=== PATIENT | female | born 1995 | race Caucasian/White ===

== ENCOUNTER 2017-12-10 03:44 | Emergency (ER) | payer SELFPAY ==
[2017-12-10] MEDS ORDERED: NACL 0.9% 1000 ML 1,000 ML IV ONE ×2 (04:00→09:16)
[2017-12-10] MEDS ORDERED: TYLENOL ONE (04:02)
[2017-12-10 04:28] LABS: Basophils # (Auto) 0.1 K/mm3 (0.0-0.1); Basophils % (Auto) 0.8 % (0.0-1.8); Eosinophils # (Auto) 0.4 K/mm3 (0.0-0.4); Eosinophils % (Auto) 5.5 % (0.0-4.3); Hematocrit 38.9 % (30.3-42.9); Hemoglobin 13.2 gm/dl (10.1-14.3); Lymphocytes # (Auto) 2.9 K/mm3 (1.2-5.4); Lymphocytes % (Auto) 38.1 % (13.4-35.0); Mean Corpuscular HGB Conc 34 % (30-34); Mean Corpuscular Hemoglobin 30 pg (28-32); Mean Corpuscular Volume 88 fl (79-97); Monocytes # (Auto) 0.6 K/mm3 (0.0-0.8); Monocytes % (Auto) 8.4 % (0.0-7.3); Platelet Count 321 K/mm3 (140-440); Red Blood Count 4.42 M/mm3 (3.65-5.03); Red Cell Distribution Width 14.7 % (13.2-15.2)
[2017-12-10 04:45] LABS: Alanine Aminotransferase 7 units/L (7-56); Albumin 4.6 g/dL (3.9-5); BUN/Creatinine Ratio 16; Blood Urea Nitrogen 8 mg/dL (7-17); Calcium 9.7 mg/dL (8.4-10.2); Hemolysis Index 7
--- NOTE | 2017-12-10 06:22 | Emergency Department Report ---
ED Abdominal Pain HPI - General Chief Complaint: Abdominal Pain Stated Complaint: ABD PAIN Time Seen by Provider: 12/10/17 06:21 Source: patient, family Mode of arrival: Ambulatory Limitations: No Limitations - History of Present Illness Initial Comments: Patient complains of left sided flank pain which started this morning. She also had nausea but denies vomiting. Patient just finished menstrual cycle last week. She denies any medical problem. She also denies fever or chills. MD Complaint: abdominal pain -: Sudden, Last night Location: LLQ, L flank Radiation: none Migration to: no migration Severity: moderate Severity scale (0 -10): 6 Quality: sharp Consistency: constant Improves With: nothing Worsens With: nothing Associated Symptoms: nausea, dysuria. denies: vomiting, diarrhea, fever, chills , constipation - Related Data LMP (females 10-50): last week Home Medications Medication Instructions Recorded Confirmed Last Taken Pnv #116/Iron Fumarate/FA/Dha 1 tab PO DAILY 03/04/16 03/04/16 2 Days Ago ~03/02/16 1 tab Previous Rx's Medication Instructions Recorded Last Taken Type Ibuprofen [Motrin] 400 mg PO Q8H PRN #30 tablet 12/10/17 Unknown Rx Ondansetron [Zofran Odt] 4 mg PO Q8HR PRN #15 tab.rapdis 12/10/17 Unknown Rx Sulfamethoxazole/Trimethoprim 1 each PO BID #28 tablet 12/10/17 Unknown Rx [Bactrim DS TAB] Allergies Allergy/AdvReac Type Severity Reaction Status Date / Time No Known Allergies Allergy Verified 08/30/15 02:47 ED Review of Systems ROS: Stated complaint: ABD PAIN Other details as noted in HPI Comment: All other systems reviewed and negative Constitutional: denies: chills, fever Eyes: denies: eye pain, eye discharge ENT: denies: ear pain, dental pain Respiratory: denies: cough, orthopnea, shortness of breath Cardiovascular: denies: chest pain, palpitations, dyspnea on exertion Endocrine: no symptoms reported Gastrointestinal: abdominal pain, nausea. denies: vomiting, diarrhea, constipation Genitourinary: dysuria, frequency. denies: urgency Musculoskeletal: denies: back pain, joint swelling Skin: denies: rash, lesions, change in color Neurological: denies: headache, weakness, numbness Psychiatric: denies: anxiety, depression Hematological/Lymphatic: denies: easy bleeding, easy bruising ED Past Medical Hx - Past Medical History Previous Medical History?: No Hx Hypertension: No Hx Diabetes: No Hx Deep Vein Thrombosis: No Hx Renal Disease: No Hx Sickle Cell Disease: No Hx Seizures: No Hx Asthma: No Hx HIV: No - Surgical History Past Surgical History?: No - Social History Smoking Status: Never Smoker Substance Use Type: None - Medications Home Medications: Home Medications Medication Instructions Recorded Confirmed Last Taken Type Pnv #116/Iron Fumarate/FA/Dha 1 tab PO DAILY 03/04/16 03/04/16 2 Days Ago History ~03/02/16 1 tab Ibuprofen [Motrin] 400 mg PO Q8H PRN #30 tablet 12/10/17 Unknown Rx Ondansetron [Zofran Odt] 4 mg PO Q8HR PRN #15 tab.rapdis 12/10/17 Unknown Rx Sulfamethoxazole/Trimethoprim 1 each PO BID #28 tablet 12/10/17 Unknown Rx [Bactrim DS TAB] ED Physical Exam - General Limitations: No Limitations General appearance: alert, in no apparent distress - Head Head exam: Present: atraumatic, normocephalic, normal inspection - Eye Eye exam: Present: normal appearance, PERRL, EOMI Pupils: Present: normal accommodation - ENT ENT exam: Present: normal exam, normal orophraynx, mucous membranes moist - Neck Neck exam: Present: normal inspection, full ROM. Absent: tenderness - Respiratory Respiratory exam: Present: normal lung sounds bilaterally. Absent: respiratory distress, wheezes, rales, rhonchi, stridor - Cardiovascular Cardiovascular Exam: Present: regular rate, normal rhythm, normal heart sounds - GI/Abdominal GI/Abdominal exam: Present: soft, tenderness (LLQ), normal bowel sounds. Absent : distended, guarding, rebound, rigid - Rectal Rectal exam: Present: deferred - External exam: Present: normal external exam. Absent: lacerations Speculum exam: Present: vaginal discharge, vaginal bleeding. Absent: tissue, laceration Bi-manual exam: Present: adnexal tenderness (Left), other ([place] was Ms. Priscilla RN.). Absent: cervical motion tendernes, adnexal mass, uterine enlargement, uterine tenderness - Extremities Exam Extremities exam: Present: normal inspection, full ROM, normal capillary refill. Absent: tenderness, pedal edema, joint swelling, calf tenderness - Back Exam Back exam: Present: normal inspection, full ROM, CVA tenderness (L). Absent: CVA tenderness (R), paraspinal tenderness, vertebral tenderness - Neurological Exam Neurological exam: Present: alert, oriented X3, CN II-XII intact - Psychiatric Psychiatric exam: Present: normal affect, normal mood - Skin Skin exam: Present: warm, dry, intact, normal color. Absent: rash ED Course Vital Signs 12/10/17 12/10/17 12/10/17 03:44 05:50 06:00 Temperature 97.5 F L 97.8 F Pulse Rate 91 H 76 Respiratory 20 16 Rate Blood Pressure 112/80 93/62 Blood Pressure 106/70 [Left] O2 Sat by Pulse 98 100 100 Oximetry 12/10/17 12/10/17 09:00 11:00 Temperature 98.1 F Pulse Rate 66 70 Respiratory 14 16 Rate Blood Pressure Blood Pressure 118/63 123/71 [Left] O2 Sat by Pulse 99 Oximetry - Reevaluation(s) Reevaluation #1: 12/10/17 10:24 On reevaluation patient says she is feeling much better after receiving treatment in the emergency room. She'll prefer to be discharged home. ED Medical Decision Making - Lab Data Result diagrams: 12/10/17 04:05 12/10/17 04:05 - Radiology Data Radiology results: report reviewed, image reviewed - Medical Decision Making Left Flank Pain. Left Pyelonephritis. PID. Critical care attestation.: If time is entered above; I have spent that time in minutes in the direct care of this critically ill patient, excluding procedure time. ED Disposition Clinical Impression: UTI (urinary tract infection) Qualifiers: Urinary tract infection type: acute cystitis Hematuria presence: without hematuria Qualified Code(s): N30.00 - Acute cystitis without hematuria Ovarian cyst Qualifiers: Laterality: left Qualified Code(s): N83.202 - Unspecified ovarian cyst, left side Abdominal pain Qualifiers: Abdominal location: lower abdomen, unspecified Qualified Code(s): R10.30 - Lower abdominal pain, unspecified Disposition: TO HOME OR SELFCARE Is pt being admited?: No Does the pt Need Aspirin: No Condition: Stable Instructions: Ovarian Cyst (ED), Urinary Tract Infection in Women (ED), Abdominal Pain (ED) Additional Instructions: Please follow up with Dr Sanchez on Wednesday morning. Return to the ED if your condition worsens. Prescriptions: Ibuprofen [Motrin] 400 mg PO Q8H PRN #30 tablet PRN Reason: Pain , Severe (7-10) Ondansetron [Zofran Odt] 4 mg PO Q8HR PRN #15 tab.rapdis PRN Reason: Nausea And Vomiting Sulfamethoxazole/Trimethoprim [Bactrim DS TAB] 1 each PO BID #28 tablet Referrals: PRIMARY CARE, [Primary Care Provider] - 3-5 Days SOUMYA SANCHEZ MD [Staff Physician] - 3-5 Days Time of Disposition: 10:34
[2017-12-10] MEDS ORDERED: MORPHINE IV ONE (06:50)
[2017-12-10] MEDS ORDERED: ZOFRAN IV ONE (06:51)
[2017-12-10 07:17] LABS: Bilirubin,Urine NEG (Negative); Blood,Urine SM (Negative); Color,Urine Yellow (Yellow); Mucus,Urine 3+ /HPF
[2017-12-10 07:34] LABS: WBC,Urine > 182.0 /HPF (0.0-6.0)
[2017-12-10] MEDS ORDERED: ROCEPHIN/NS 1 GM/50 ML 1 GM/50 ML BAG IV NR (09:15)
--- NOTE | 2017-12-10 09:50 | Cat Scan Report ---
CT scan of abdomen and pelvis with IV contrast: History: Abdominal pain. Findings: Normal lung bases. No pleural or pericardial effusion. Normal liver spleen pancreas and gallbladder. Normal adrenals kidneys and bladder. No free intraperitoneal fluid or air. No evidence of adenopathy. Normal aorta. No evidence of appendicitis or diverticulitis. Suspicion of a small left ovarian cyst. No bowel distention or evidence of obstruction. Impression: Suspicion of a small left ovarian cyst.
[2017-12-10 11:16] VITALS: BP 123/71
== END 2017-12-10 11:16 | disposition home or self-care (01) ==
LOC: ED 03:44
DX: N30.00 Acute cystitis without hematuria (principal); N83.202 Unspecified ovarian cyst, left side
CPT/HCPCS: 36415; 74177; 80053; 81001; 83690; 84703; 85025; 87076; 87086; 87186; 87210; 87591; 96365; 96375; 99285; J0696; J2270; J2405; J7030; Q9967

== ENCOUNTER 2021-08-09 22:23 | Emergency (ER) | payer SELFPAY ==
[2021-08-09 22:52] VITALS: BP 109/72
[2021-08-09 23:31] LABS: Bilirubin,Urine NEG (Negative); Blood,Urine NEG (Negative); Color,Urine Straw (Yellow); Mucus,Urine FEW /HPF; Protein,Urine <15 mg/dL mg/dL (Negative); Urobilinogen,Urine < 2.0 mg/dL (<2.0)
[2021-08-09 23:51] LABS: Basophils # (Auto) 0.1 K/mm3 (0.0-0.1); Basophils % (Auto) 0.9 % (0.0-1.8); Eosinophils # (Auto) 0.2 K/mm3 (0.0-0.4); Eosinophils % (Auto) 2.5 % (0.0-4.3); Hematocrit 32.9 % (30.3-42.9); Hemoglobin 10.9 gm/dl (10.1-14.3); Lymphocytes # (Auto) 2.8 K/mm3 (1.2-5.4); Lymphocytes % (Auto) 42.9 % (13.4-35.0); Mean Corpuscular HGB Conc 33 % (30-34); Mean Corpuscular Volume 84 fl (79-97); Monocytes # (Auto) 0.6 K/mm3 (0.0-0.8); Monocytes % (Auto) 8.9 % (0.0-7.3); Platelet Count 261 K/mm3 (140-440); Red Blood Count 3.92 M/mm3 (3.65-5.03); Red Cell Distribution Width 15.6 % (13.2-15.2)
[2021-08-09] MEDS ORDERED: ACETAMINOPHEN 325 MG TAB PO ONE (23:57)
[2021-08-10 00:01] LABS: HCG Qualitative,Urine Positive (Negative)
[2021-08-10 00:15] LABS: Alanine Aminotransferase 6 units/L (7-56); Albumin 4.3 g/dL (3.9-5); Blood Urea Nitrogen 8 mg/dL (7-17); Calcium 9.4 mg/dL (8.4-10.2); Hemolysis Index 2
[2021-08-10 00:21] LABS: BUN/Creatinine Ratio 16
--- NOTE | 2021-08-10 02:39 | Ultrasound Report ---
ULTRASOUND OBSTETRIC INDICATION / CLINICAL INFORMATION: Left lower abdo pain- , 8 weeks gestation. Clinical Gestational Age (GA) in weeks, days: 10 weeks 1 day TECHNIQUE: Transabdominal and Transvaginal. COMPARISON: None available. FINDINGS: The uterus measures 10.7 x 8.0 x 10.2 cm. A single intrauterine gestational sac is demonstrated with mean gestational sac size of 5.01 mm, ashley elating with 10 week 5 day estimated gestational age and mean crown-rump length of 2.98 mm, correlati ng with a 9 week 6 day estimated gestational age. Estimated composite gestational age is 10 weeks 2 days with EDC of 03/06/2022. Yolk sac and pole demonstrate no significant abnormalities. Sac margins appear intact. No free fluid noted within the pelvis. heart rate of 151 bpm is demonstrated. Ovaries are not identified. IMPRESSION: 1. Single intrauterine gestation with estimated composite gestational age of 10 weeks 2 days, EDC of 03/06/2022. heart activity is present. Signer Name: Corey Melo II, MD Signed: 08/10/2021 2:35 AM Workstation Name: [id number]
--- NOTE | 2021-08-10 02:56 | Emergency Department Report ---
ED Abdominal Pain HPI - General Chief Complaint: Abdominal Pain Stated Complaint: 2 MONTHS /SEVERE SHARP ABD PAIN Source: patient Mode of arrival: Ambulatory Limitations: No Limitations - History of Present Illness Initial Comments: Patient is a A0 25-year-old female who is approximately 8 weeks gestation presents to the ED with complaint of acute onset persistent left flank pain that radiates to the left lower quadrant and suprapubic pain for the last 1-1/2 weeks, worse in the last 3 days. Patient states that the pain was initially mild and intermittent but in the last 3 days the pain has become constant and worse with movement. Patient denies vaginal bleeding, vaginal discharge, dysuria, urinary frequency and urgency, chest pain or shortness of breath, sore throat, diarrhea, vomiting, traumatic injury or heavy lifting or cough, fever and chills. MD Complaint: abdominal pain (Left flank and left lower abdominal pain) -: Sudden, week(s) (1.5 ) Location: LLQ, L flank Radiation: LLQ, suprapubic, L flank Migration to: no migration Severity scale (0 -10): 6 Quality: cramping, sharp Consistency: constant Improves With: nothing Worsens With: movement Associated Symptoms: denies other symptoms, nausea. denies: vomiting, diarrhea, fever, chills, constipation, dysuria, hematemesis, melena, hematuria, anorexia, syncope, other - Related Data Home Medications Medication Instructions Recorded Confirmed Last Taken Pnv #116/Iron Fumarate/FA/Dha 1 tab PO DAILY 03/04/16 03/04/16 2 Days Ago ~03/02/16 1 tab Previous Rx's Medication Instructions Recorded Last Taken Type Ibuprofen [Motrin] 400 mg PO Q8H PRN #30 tablet 12/10/17 Unknown Rx Ondansetron [Zofran Odt] 4 mg PO Q8HR PRN #15 tab.rapdis 12/10/17 Unknown Rx Sulfamethoxazole/Trimethoprim 1 each PO BID #28 tablet 12/10/17 Unknown Rx [Bactrim DS TAB] Acetaminophen [Tylenol] 500 mg PO Q6HR PRN #30 tablet 08/10/21 Unknown Rx Metoclopramide [Reglan] 10 mg PO Q8H PRN #30 tab 08/10/21 Unknown Rx Allergies Allergy/AdvReac Type Severity Reaction Status Date / Time No Known Allergies Allergy Verified 08/30/15 02:47 ED Review of Systems ROS: Stated complaint: 2 MONTHS /SEVERE SHARP ABD PAIN Other details as noted in HPI Constitutional: denies: chills, fever Eyes: denies: eye pain, eye discharge, vision change ENT: denies: ear pain, throat pain Respiratory: denies: cough, shortness of breath, wheezing Cardiovascular: denies: chest pain, palpitations Endocrine: no symptoms reported Gastrointestinal: abdominal pain (Left lower quadrant and left flank pain), nausea. denies: vomiting, diarrhea Genitourinary: denies: urgency, dysuria, discharge Musculoskeletal: denies: back pain, joint swelling, arthralgia Skin: denies: rash, lesions Neurological: denies: headache, weakness, paresthesias Psychiatric: denies: anxiety, depression Hematological/Lymphatic: denies: easy bleeding, easy bruising ED Past Medical Hx - Past Medical History Previous Medical History?: No Hx Hypertension: No Hx Diabetes: No Hx Deep Vein Thrombosis: No Hx Renal Disease: No Hx Sickle Cell Disease: No Hx Seizures: No Hx Asthma: No Hx HIV: No - Surgical History Past Surgical History?: No - Social History Smoking Status: Never Smoker Substance Use Type: None - Medications Home Medications: Home Medications Medication Instructions Recorded Confirmed Last Taken Type Pnv #116/Iron Fumarate/FA/Dha 1 tab PO DAILY 03/04/16 03/04/16 2 Days Ago History ~03/02/16 1 tab Ibuprofen [Motrin] 400 mg PO Q8H PRN #30 tablet 12/10/17 Unknown Rx Ondansetron [Zofran Odt] 4 mg PO Q8HR PRN #15 tab.rapdis 12/10/17 Unknown Rx Sulfamethoxazole/Trimethoprim 1 each PO BID #28 tablet 12/10/17 Unknown Rx [Bactrim DS TAB] Acetaminophen [Tylenol] 500 mg PO Q6HR PRN #30 tablet 08/10/21 Unknown Rx Metoclopramide [Reglan] 10 mg PO Q8H PRN #30 tab 08/10/21 Unknown Rx ED Physical Exam - General Limitations: No Limitations General appearance: alert, in no apparent distress - Head Head exam: Present: atraumatic, normocephalic, normal inspection - Eye Eye exam: Present: normal appearance, PERRL, EOMI Pupils: Present: normal accommodation - ENT ENT exam: Present: normal exam, normal orophraynx, mucous membranes moist, TM's normal bilaterally, normal external ear exam - Neck Neck exam: Present: normal inspection, full ROM - Respiratory Respiratory exam: Present: normal lung sounds bilaterally. Absent: respiratory distress, wheezes, rales, rhonchi, stridor, chest wall tenderness, accessory muscle use, decreased breath sounds, prolonged expiratory - Cardiovascular Cardiovascular Exam: Present: regular rate, normal rhythm, normal heart sounds. Absent: systolic murmur, diastolic murmur, rubs, gallop - GI/Abdominal GI/Abdominal exam: Present: soft, tenderness (Palpable left flank and left lower quadrant tenderness), normal bowel sounds. Absent: guarding, rebound, hyperactive bowel sounds, hypoactive bowel sounds, organomegaly, mass - Bi-manual exam: Present: other (Pelvic exam deferred) - Extremities Exam Extremities exam: Present: normal inspection, full ROM, normal capillary refill - Back Exam Back exam: Present: normal inspection, full ROM. Absent: tenderness, CVA tenderness (R), CVA tenderness (L), muscle spasm, paraspinal tenderness, vertebral tenderness - Neurological Exam Neurological exam: Present: alert, oriented X3, CN II-XII intact, normal gait, reflexes normal - Psychiatric Psychiatric exam: Present: normal affect, normal mood - Skin Skin exam: Present: warm, dry, intact, normal color. Absent: rash ED Course Vital Signs 08/09/21 22:50 Temperature 97.9 F Pulse Rate 89 Respiratory 20 Rate Blood Pressure 109/72 O2 Sat by Pulse 100 Oximetry ED Medical Decision Making - Lab Data Result diagrams: 08/09/21 23:37 08/09/21 23:37 - Radiology Data Radiology results: report reviewed, image reviewed [facility] [address] [place] [address] Ultrasound Report Signed Patient: LETY MANZO MR# : [id number] : 1995 Acct:[id number] Age/Sex: 25 / F ADM Date: 08/09/21 Loc: ED Attending Dr: Ordering Physician: DIAMOND CALDERON Date of Service: 08/09/21 Procedure(s): US OB transvaginal Accession Number(s): [id number] cc: DEJA OSEDO, PA ULTRASOUND OBSTETRIC INDICATION / CLINICAL INFORMATION: Left lower abdo pain- , 8 weeks gestation. Clinical Gestational Age (GA) in weeks, days: 10 weeks 1 day TECHNIQUE: Transabdominal and Transvaginal. COMPARISON: None available. FINDINGS: The uterus measures 10.7 x 8.0 x 10.2 cm. A single intrauterine gestational sac is demonstrated with mean gestational sac size of 5.01 mm, correlating with 10 week 5 day estimated gestational age and mean crown-rump length of 2.98 mm, correlating with a 9 week 6 day estimated gestational age. Estimated composite gestational age is 10 weeks 2 days with EDC of 03/06/2022. Yolk sac and pole demonstrate no significant abnormalities. Sac margins appear intact. No free fluid noted within the pelvis. heart rate of 151 bpm is demonstrated. Ovaries are not identified. IMPRESSION: 1. Single intrauterine gestation with estimated composite gestational age of 10 weeks 2 days, EDC of 03/06/2022. heart activity is present. Signer Name: Amalia Westbrook II, MD Signed: 08/10/2021 2:35 AM Workstation Name: [id number] Transcribed By: JAMES Dictated By: AMALIA WESTBROOK II, MD Electronically Authenticated By: AMALIA WESTBROOK II, MD Signed Date/Time: 08/10/21234 DD/ 0 TD/TT: - Medical Decision Making This is a A0 25-year-old female who is approximately 8 weeks gestation presents to the ED with complaint of acute onset persistent left flank pain that radiates to the left lower quadrant and suprapubic pain for the last 1-1/2 weeks, worse in the last 3 days. Patient states that the pain was initially mild and intermittent but in the last 3 days the pain has become constant and worse with movement. In the ED, patient is alert and oriented x3 and is not in any distress. Patient was treated for pain in the ED. Lab test results were reviewed and are all nonactionable. Transvaginal ultrasound showed a single intrauterine gestation with estimated composite gestational age of 10 weeks 2 days, EDC of 03/06/2022 with the heart rate of 151 bpm. Patient was therefore discharged home and advised to take Tylenol as needed for pain, and observe complete pelvic rest with no strenuous physical activities or sexual activities or heavy lifting and to follow-up with [facility] [facility] physician in 5 to 7 days for reevaluation. Patient is advised return to the ED immediately if symptoms get worse. - Differential Diagnosis Ovarian cyst; ectopic ; UTI; kidney stone; Critical care attestation.: If time is entered above; I have spent that time in minutes in the direct care of this critically ill patient, excluding procedure time. ED Disposition Clinical Impression: Abdominal pain during in first trimester Disposition: HOME / SELF CARE / HOMELESS Is pt being admited?: No Does the pt Need Aspirin: No Condition: Stable Instructions: Abdominal Pain (ED), Abdominal Pain During , [id number] Additional Instructions: All lab test results were reviewed and are all nonactionable. Transvaginal ultrasound showed a single intrauterine gestation with estimated composite gestational age of 10 weeks 2 days, EDC of 03/06/2022 with a heart rate of 151 bpm. Therefore take Tylenol as needed for pain, drink plenty of fluids, observe complete pelvic rest with no straining, sexual activity, heavy lifting and follow-up with your [employer] [employer] [facility] physician in 5 to 7 days for reevaluation. Return to the ED immediately if symptoms get worse. Prescriptions: Acetaminophen [Tylenol] 500 mg PO Q6HR PRN #30 tablet PRN Reason: Pain , Severe (7-10) Metoclopramide [Reglan] 10 mg PO Q8H PRN #30 tab PRN Reason: Nausea And Vomiting Referrals: AVILA PERALES MD [Staff Physician] - 3-5 Days Time of Disposition: 03:00 Print Language: ROMANIAN
== END 2021-08-10 03:09 | disposition home or self-care (01) ==
LOC: ED 22:23
DX: O26.891 Other specified pregnancy related conditions, first trimester (principal); R10.32 Left lower quadrant pain; Z3A.08 8 weeks gestation of pregnancy; Z79.899 Other long term (current) drug therapy
CPT/HCPCS: 36415; 76801; 76817; 80053; 81001; 81025; 83690; 84702; 85025; 99284

== ENCOUNTER 2022-02-12 20:49 | Inpatient (IN) | payer SELFPAY ==
[2022-02-12] MEDS ORDERED: LACTATED RINGERS 500 ML IV ONE (21:19)
[2022-02-12] MEDS ORDERED: LOPERAMIDE 2 MG CAP PO PRN (21:45)
[2022-02-12] MEDS ORDERED: MINERAL OIL 30 ML ORAL LIQD PO PRN (21:45)
[2022-02-12] MEDS ORDERED: fentaNYL 100 MCG/2 ML INJ IV PRN (21:45)
[2022-02-12] MEDS ORDERED: LIDOCAINE (2%) 20 MG/1 ML VIAL 20 ML MDV INFILTRATI ONE (21:45)
[2022-02-12] MEDS ORDERED: miSOPROStol 200 MCG TAB PR PRN (21:45)
[2022-02-12] MEDS ORDERED: LACTATED RINGERS 1,000 ML IV SCH (21:45)
[2022-02-12] MEDS ORDERED: BUTORPHANOL 2 MG/1 ML INJ IV PRN ×2 (21:45)
[2022-02-12] MEDS ORDERED: OXYTOCIN 10 UNIT/1 ML INJ IM PRN (21:45)
[2022-02-12] MEDS ORDERED: METHYLERGONOVINE MALEATE 0.2 MG/ML VIAL IM PRN (21:45)
[2022-02-12] MEDS ORDERED: ePHEDrine SULFATE 50 MG/1 ML INJ IV PRN (21:45)
[2022-02-12] MEDS ORDERED: ACETAMINOPHEN 325 MG TAB PO PRN ×2 (21:45→23:35)
[2022-02-12] MEDS ORDERED: CARBOPROST TROMETHAMINE 250 MCG/1 ML INJ IM PRN (21:45)
[2022-02-12] MEDS ORDERED: TERBUTALINE 1 MG/1 ML INJ SUB-Q PRN (21:45)
[2022-02-12] MEDS ORDERED: OXYTOCIN DRIP 30 UNITS/500 ML BAG IV SCH ×2 (22:00)
--- NOTE | 2022-02-12 22:43 | Ultrasound Report ---
ULTRASOUND OBSTETRIC INDICATION / CLINICAL INFORMATION: Contractions. Clinical Gestational Age (GA) in weeks, days: 36, 5 TECHNIQUE: Transabdominal and Transvaginal. COMPARISON: None available. FINDINGS: Single intrauterine . Biparietal Diameter = 8.37 cm = 33, 5 weeks, days Head Circumference = 31.01 cm = 34, 5 weeks, days Abdominal Circumference = 29.53 cm = 33, 4 weeks, days Femur Length = 6.73 cm = 34, 4 weeks, days Average Ultrasound Age (AUA) = 34, 1 weeks, days Heart Rate: 134 beats per minute. Estimated Weight in grams (if calculated): 2316 Estimated Weight Growth Percentile (if calculated): 4 Position: cephalic. Cervix: Cervix could not be visualized Placenta: anterior and grade 2 Amniotic Fluid Volume: normal Amniotic Fluid Index (GILDA) in cm (if calculated): 8.2. IMPRESSION: 1. Single, living intrauterine with estimated sonographic age of 34, 1 weeks, days. 2. The cervix could not be visualized. Signer Name: Taye Pérez MD Signed: 02/12/2022 10:39 PM Workstation Name: [id number]
[2022-02-12 22:51] LABS: Hematocrit 30.9 % (30.3-42.9); Hemoglobin 10.1 gm/dl (10.1-14.3); Mean Corpuscular HGB Conc 33 % (30-34); Mean Corpuscular Volume 87 fl (79-97); Platelet Count 239 K/mm3 (140-440); Red Blood Count 3.56 M/mm3 (3.65-5.03); Red Cell Distribution Width 15.7 % (13.2-15.2)
[2022-02-12] MEDS ORDERED: LIDOCAINE-MPF (1%) 10 MG/1 ML VIAL 5 ML INFILTRATI ONE (23:10)
[2022-02-12] MEDS ORDERED: WITCH HAZEL/ GLYCERIN PAD TP PRN (23:35)
[2022-02-12] MEDS ORDERED: LANOLIN/ZINC/DIMETHICONE (LANSINOH) 7 GM TP PRN (23:35)
[2022-02-12] MEDS ORDERED: HYDROcodone/ACETAMINOPHEN 5-325 MG TAB PO PRN (23:35)
[2022-02-12] MEDS ORDERED: BENZOCAINE/MENTHOL 20/0.5% TOP SPRAY 56 GM TP PRN (23:35)
[2022-02-12] MEDS ORDERED: MAGNESIUM HYDROXIDE (MOM) ORAL LIQD UDC PO PRN (23:35)
--- NOTE | 2022-02-12 23:46 | History and Physical Report ---
History of Present Illness Date of examination: 02/12/22 Date of admission: 02/12/22 21:45 Chief complaint: Contractions History of present illness: 26-year-old at 36-5/7 weeks gestation presents to OB triage reporting regular and painful uterine contractions every 3 to 5 minutes. There is no vaginal bleeding. There is no leaking of fluid. There is good movement. In OB triage, cervix was noted to be 10/100%/+2 with bulging bag of water. The patient is admitted to labor and delivery for management of active labor. Past History Past Medical History: no pertinent history Past Surgical History: no surgical history Family/Genetic History: none Social history: no significant social history - Obstetrical History Expected Date of Delivery: 03/07/22 Actual Gestation: 36 Week(s) 5 Day(s) : 3 Para: 2 Hx # Term Pregnancies: 1 Number of Pregnancies: 1 Spontaneous Abortions: 0 Induced : 0 Number of Living Children: 2 Medications and Allergies Allergies Allergy/AdvReac Type Severity Reaction Status Date / Time No Known Allergies Allergy Verified 08/30/15 02:47 Home Medications Medication Instructions Recorded Confirmed Last Taken Type Pnv #116/Iron Fumarate/FA/Dha 1 tab PO DAILY 03/04/16 03/04/16 2 Days Ago History ~03/02/16 1 tab Ibuprofen [Motrin] 400 mg PO Q8H PRN #30 tablet 12/10/17 Unknown Rx Ondansetron [Zofran Odt] 4 mg PO Q8HR PRN #15 tab.rapdis 12/10/17 Unknown Rx Sulfamethoxazole/Trimethoprim 1 each PO BID #28 tablet 12/10/17 Unknown Rx [Bactrim DS TAB] Acetaminophen [Tylenol] 500 mg PO Q6HR PRN #30 tablet 08/10/21 Unknown Rx Metoclopramide [Reglan] 10 mg PO Q8H PRN #30 tab 08/10/21 Unknown Rx Active Meds: Active Medications Acetaminophen (Acetaminophen 325 Mg Tab) 650 mg PO Q4H PRN PRN Reason: Pain MILD(1-3)/Fever >100.5/CHIU Hydrocodone Bitart/Acetaminophen (Hydrocodone/Acetaminophen 5-325 Mg Tab) 2 each PO Q6H PRN PRN Reason: Pain, Moderate (4-6) Benzocaine/Menthol (Benzocaine/Menthol 20/0.5% [place] 56 Gm) 1 spray TP PRN PRN PRN Reason: Episiotomy Pain Docusate Sodium (Docusate Sodium 100 Mg Cap) 100 mg PO BID CINDY Ibuprofen (Ibuprofen 800 Mg Tab) 800 mg PO Q8H CINDY Magnesium Hydroxide (Magnesium Hydroxide (Mom) Oral Liqd Udc) 30 ml PO HS PRN PRN Reason: Constipation Multi-Ingredient Ointment (Lanolin/Zinc/Dimethicone (Lansinoh) 7 Gm) 1 applic TP PRN PRN PRN Reason: Sore Nipples Multivitamins/Iron/Calcium ( Qpy39-Kv Fumarate-Folic Acid Vit Tab) 1 ea ch PO QDAY CINDY Sodium Chloride (Sodium Chloride 0.9% 10 Ml Flush Syringe) 10 ml IV PRN NR Witch Radhika/Glycerin (Witch Radhika/ Glycerin Pad) 1 each TP PRN PRN PRN Reason: Hemorrhoid/cleansing/soothing Review of Systems All systems: negative - Vital Signs Vital signs: Vital Signs Resp Pulse Ox 14 100 02/12/22 21:02 02/12/22 21:02 Temp Pulse Resp BP Pulse Ox 83 14 102/59 97 02/12/22 23:38 02/12/22 21:02 02/12/22 23:34 02/12/22 23:38 - Physical Exam Breasts: Positive: normal Cardiovascular: Regular rate Lungs: Positive: Normal air movement Abdomen: Positive: normal appearance Genitourinary (Female): Positive: normal external genitalia, normal perenium Vulva: both: normal Vagina: Positive: normal moisture Uterus: Positive: enlarged Adnexa: both: normal Anus/Rectum: Positive: normal perianal skin Extremities: Positive: normal Deep Tendon Reflex Grade: Normal +2 - Obstetrical FHR: category 1 Uterine Contraction Monitor Mode: External Cervical Dilatation: 10 Cervical Effacement Percentage: 100 station: +2 Uterine Contraction Frequency (min): 3 Uterine Contraction Pattern: Regular Results Result Diagrams: 02/12/22 21:45 Abnormal lab results 02/12/22 Range/Units 21:45 RBC 3.56 L (3.65-5.03) M/mm3 RDW 15.7 H (13.2-15.2) % All other labs normal. Ultrasound: report reviewed, image reviewed, other (OB Ultrasound Limited= SLIUP. Vertex. Anerior placenta. EFW= 2316 g (4th %-ile). GILDA= 8.2 cm.) Assessment and Plan - Patient Problems (1) 36 weeks gestation of Current Visit: Yes Status: Acute Plan to address problem: care is up-to-date. As this patient is below 37 weeks, prescribed penicillin for intrapartum GBS prophylaxis per 2010 CDC MMWR guidelines. (2) labor in third trimester Current Visit: Yes Status: Acute Plan to address problem: As this patient is 10 cm dilated at this gestational age, she fulfills the contemporary criteria for labor. As this patient is below 37 weeks, prescribed penicillin for intrapartum GBS prophylaxis per 2010 CDC MMWR guidelines. No glucocorticoids at this gestational age as delivery is imminent. There is no role for tocolysis at this gestational age. There is no role for magnesium for neuro prophylaxis at this gestational age. NICU was consulted. Expectant management for now. I anticipate a precipitous vaginal delivery imminently. (3) growth restriction Current Visit: Yes Status: Acute Plan to address problem: The estimated weight is in the 4th percentile. As such this fulfills the contemporary criteria for growth restriction. NICU was consulted. I expect a precipitous vaginal delivery imminently.
--- NOTE | 2022-02-12 23:52 | Procedure Note ---
OB Delivery Note - Delivery Date of Delivery: 02/12/22 Surgeon: ARIADNE JORDAN Estimated blood loss: 300cc - Vaginal Delivery presentation: vertex Delivery position: OA Intrapartum events: labor-<37 weeks, precipitous labor- <3hr Delivery induction: none Delivery augmentation: rupture of membranes Delivery monitor: external FHT, external uterine Route of delivery: Delivery placenta: spontaneous Delivery cord: 3 umbilical vessels Episiotomy: none Delivery laceration: 1st degree, other (Bilateral periurethral lacerations) Delivery repair: vicryl Anesthesia: local Delivery comments: The patient is a 26-year-old at 36-5/7 weeks gestation who presented to OB triage with regular and painful uterine contractions. Cervix was noted to be 10 cm dilated. As such this patient was then labor. She was brought to labor and delivery. Membranes were artificially ruptured. The patient produced a liveborn female infant. Mouth and nose were bulb suction in the field. The remainder of the infant was delivered atraumatically. Cord was clamped and cut after 60 seconds of delayed cord clamping. The was handed off to the waiting nursery team. Bilateral periurethral lacerations and a first- degree perineal laceration were infiltrated with lidocaine with 1%. Thereafter, those lacerations were repaired with 3-0 Vicryl in a running fashion with excellent hemostasis and excellent cosmesis. All instruments were removed from the patient's vagina. Sponge, lap, needle counts were correct x2. - Infant A at 1 minute: 8 at 5 minutes: 9 Infant Gender: Female (2560 g)
[2022-02-13 06:27] LABS: Hematocrit 28.9 % (30.3-42.9); Hemoglobin 9.7 gm/dl (10.1-14.3); Mean Corpuscular HGB Conc 33 % (30-34); Mean Corpuscular Volume 87 fl (79-97); Platelet Count 242 K/mm3 (140-440); Red Blood Count 3.35 M/mm3 (3.65-5.03); Red Cell Distribution Width 16.3 % (13.2-15.2)
[2022-02-13] MEDS: IBUPROFEN 800 MG TAB PO SCH ×2 (08:19→16:41)
[2022-02-13] MEDS ORDERED: DOCUSATE SODIUM 100 MG CAP PO SCH (10:00)
[2022-02-13] MEDS ORDERED: PRENATAL VIT27-FE FUMARATE-FOLIC ACID VIT TAB PO SCH (10:00)
--- NOTE | 2022-02-13 14:55 | Progress Note ---
Assessment and Plan A: S/P Asymptomatic anemia P: Continue routine pp orders Fe rx'd D/C home tomm if stable Subjective - Subjective Date of service: 02/13/22 Principal diagnosis: s/p Patient reports: appetite normal, voiding normally, pain well controlled, ambulating normally : doing well, in NICU Objective - Vital Signs Latest vital signs: Vital Signs Temp Pulse Resp BP BP Pulse Ox 02/13/22 08:51 97.9 F 80 16 103/69 97 02/13/22 08:30 80 98 02/13/22 08:25 72 99 02/13/22 08:20 104 H 97 02/13/22 08:19 20 02/13/22 08:15 88 97 02/13/22 08:10 100 H 96 02/13/22 08:05 91 H 96 02/13/22 08:00 70 96 02/13/22 07:55 73 97 02/13/22 07:50 87 96 02/13/22 07:45 76 95 02/13/22 07:40 91 H 97 02/13/22 07:38 84 94 02/13/22 07:37 85 96/59 02/13/22 07:35 97.9 F 82 20 96/59 95 02/13/22 07:34 71 94/55 02/13/22 01:23 87 96 02/13/22 01:18 82 98 02/13/22 01:13 79 97 02/13/22 01:08 74 96 02/13/22 01:04 77 100/60 02/13/22 01:03 91 H 98 02/13/22 00:58 82 97 02/13/22 00:57 85 94 02/13/22 00:53 75 96 02/13/22 00:48 84 96 02/13/22 00:43 82 96 02/13/22 00:39 98.2 F 02/13/22 00:38 84 96 02/13/22 00:34 85 108/66 02/13/22 00:33 83 99 02/13/22 00:28 72 99 02/13/22 00:23 80 99 02/13/22 00:18 74 99 02/13/22 00:13 76 98 02/13/22 00:09 99.0 F 02/13/22 00:08 71 99 02/13/22 00:03 67 105/64 99 02/12/22 23:58 75 99 02/12/22 23:53 73 99 02/12/22 23:48 75 101/59 98 02/12/22 23:43 82 97 02/12/22 23:38 83 97 02/12/22 23:34 83 102/59 02/12/22 23:33 90 98 02/12/22 23:28 87 97 02/12/22 23:23 83 98 02/12/22 23:18 89 97 02/12/22 23:13 89 98 02/12/22 23:08 84 99 02/12/22 23:03 88 99 02/12/22 22:58 83 96 02/12/22 22:53 85 98 02/12/22 22:48 96 H 99 02/12/22 22:43 97 H 99 02/12/22 22:38 98 H 97 02/12/22 22:33 92 H 97 02/12/22 22:28 89 97 02/12/22 22:23 89 98 02/12/22 22:18 91 H 97 02/12/22 22:13 84 98 02/12/22 22:11 92 H 94 02/12/22 22:08 92 H 96 02/12/22 22:03 88 97 02/12/22 21:58 79 98 02/12/22 21:53 80 98 02/12/22 21:48 102 H 98 02/12/22 21:43 90 97 02/12/22 21:38 87 97 02/12/22 21:33 102 H 96 02/12/22 21:28 95 H 98 02/12/22 21:23 93 H 99 02/12/22 21:18 92 H 98 02/12/22 21:17 93 H 124/64 02/12/22 21:02 14 100 Intake and Output 02/12/22 02/13/22 02/13/22 22:59 06:59 14:59 Output Total 300 Balance -300 Output: Urine 300 Void 300 Other: Total, Output Amount 300 Weight 106 lb Estimated Blood Loss 300 - Exam Breasts: Present: normal Abdomen: Present: normal appearance, soft, normal bowel sounds Vulva: both: normal Uterus: Present: normal, firm, fundal height below umbilicus Extremities: Present: normal Incision: Present: normal, intact - Labs Labs: Abnormal lab results 02/12/22 02/13/22 Range/Units 21:45 05:38 WBC 11.6 H (4.5-11.0) K/mm3 RBC 3.56 L 3.35 L (3.65-5.03) M/mm3 Hgb 9.7 L (10.1-14.3) gm/dl Hct 28.9 L (30.3-42.9) % RDW 15.7 H 16.3 H (13.2-15.2) %
[2022-02-13] MEDS ORDERED: FERROUS SULFATE 325 MG TAB PO ONE (16:00)
[2022-02-13 17:20] VITALS: BP 107/59
--- NOTE | 2022-02-13 19:11 | Discharge Summary ---
Providers - Providers Date of Admission: 02/12/22 21:45 Date of discharge: 02/14/22 Attending physician: ARIADNE JORDAN MD Primary care physician: ARIADNE JORDAN MD Hospitalization Reason for admission: active labor, labor Delivery: Episiotomy: none Laceration: 1st degree Incision: normal, intact Other procedures: none complications: other (asymptomatic anemia-received Fe) Discharge diagnosis: delivery [place] baby: female Hospital course: Pt was admitted to [facility] in [place]. She had a and developed asymptomatic anemia pp. Pt received Fe pp and was d/c'd home in stable condition. See H&P,delivery summary, and pp notes. Condition at discharge: Stable Disposition: HOME / SELF CARE / HOMELESS Plan - Discharge Medications Prescriptions: Ibuprofen [Motrin 800 MG tab] 800 mg PO Q8HR PRN #20 tablet PRN Reason: Pain, Mild (1-3) - Provider Discharge Summary Activity: routine, no sex for 6 weeks, no heavy lifting 4 weeks, no strenuous exercise Diet: routine Instructions: routine Additional instructions: [] Smoking cessation referral if applicable(refer to patient education folder for contact #) [] Refer to [facility]'s [facility] Booklet Call your doctor immediately for: * Fever > 100.5 * Heavy vaginal bleeding ( >1 pad per hour) * Severe persistent headache * Shortness of breath * Reddened, hot, painful area to leg or breast * Drainage or odor from incision. * Keep incision clean and dry at all times and follow doctor's instructions rega rding bathing/showering - Follow up plan Follow up: ARIADNE JORDAN MD [Primary Care Provider] - 6 Weeks
--- NOTE | 2022-02-13 21:37 | Post Anesthesia Evaluation ---
- Post Anesthesia Evaluation Patient Participated: No Airway Patent: Yes Stable Respiratory Function: Yes Nausea/Vomiting: No Temp > 96.8F: Yes Pain Manageable: Yes Adequeate Hydration: Yes Anesthesia Complications: No Block Receding Appropriately: Yes Patient on Ventilator: No
--- NOTE | 2022-02-13 21:39 | Anesthesia Consultation ---
Anesthesia Consult and Med Hx Date of service: 02/13/22 - Airway Anesthetic Teeth Evaluation: Good ROM Head & Neck: Adequate Mental/Hyoid Distance: Adequate Mallampati Class: Class II Intubation Access Assessment: Probably Good - Pulmonary Exam CTA: Yes - Cardiac Exam Cardiac Exam: RRR - Pre-Operative Health Status ASA Pre-Surgery Classification: ASA2 Proposed Anesthetic Plan: Epidural - Pulmonary Hx Smoking: No Hx Asthma: No Hx Respiratory Symptoms: No SOB: No COPD: No Home Oxygen Therapy: No Hx Pneumonia: No Hx Sleep Apnea: No - Cardiovascular System Hx Hypertension: No Hx Coronary Artery Disease: No Hx Heart Attack/AMI: No Hx Angina: No Hx Percutaneous Transluminal Coronary Angioplasty (PTCA): No Hx Cardia Arrhythmia: No Hx Pacemaker: No Hx Internal Defibrillator: No Hx Valvular Heart Disease: No Hx Heart Murmur: No Hx Peripheral Vascular Disease: No - Central Nervous System Hx Neuromuscular Disorder: No Hx Seizures: No CVA: No Hx Back Pain: No Hx Psychiatric Problems: No - Gastrointestinal Hx Ulcer: No Hx Gastroesophageal Reflux Disease: No - Endocrine Hx Renal Disease: No Hx End Stage Renal Disease: No Hx Cirrhosis: No Hx Liver Disease: No Hx Insulin Dependent Diabetes: No Hx Non-Insulin Dependent Diabetes: No Hx Thyroid Disease: No Hx Hypothyroidism: No Hx Hyperthyroidism: No - Hematic Hx Anemia: No Hx Sickle Cell Disease: No - Other Systems Hx Alcohol Use: No Hx Substance Use: No Hx Cancer: No Hx Obesity: Yes
--- NOTE | 2022-02-13 21:39 | Anesthesia Day of Surgery ---
Anesthesia Day of Surgery - Day of Surgery Patient Examined: Yes Patient H&P Reviewed: Yes Patient is NPO: Yes Beta Blockers: No Cardiac Clearance: No Pulmonary Clearance: No Nazario's Test: N/A
--- NOTE | 2022-02-13 21:40 | Progress Note ---
Labor Epidural - Labor Epidural Start Time: 09:56 Stop Time: 10:02 Performed by:: AYLEEN ALEMAN Procedure: Epidural Requested for Labor Pain. H&P and PT Chart reviewed and consent obtained. Time out performed and the procedure was explained, all questions answered. Patient was placed in a sitting position with monitors applied. The PTs back was prepped and draped in usual sterile fashion. The Skin was localized with 3 mL of 1% lidocaine at L3-L4. A 17-gauge Touhy epidural needle was advanced to MISTY with saline at 7 cm and no blood/CSF was noted via epidural needle. Epidural catheter was advanced to 12 cm. There was negative aspiration for blood and CSF in the catheter and negative response to a test dose of 3 ml 1.5% lidocaine w/ Epi and a sterile dressing was applied Patient tolerated the procedure well and there were no immediate complications noted.
== END 2022-02-13 23:44 | disposition home or self-care (01) | DRG 805 ==
LOC: TRG 20:49 → LD 21:13 → TRG 21:45 → LD 21:45 → OB 02-13 08:42
PROVIDERS: ADMIT Obstetrics & Gynecology Gynecology; ATTEND Obstetrics & Gynecology Gynecology
PROC: 10E0XZZ Delivery of Products of Conception, External Approach (ICD-10-PCS; principal; 2022-02-12)
PROC: 0HQ9XZZ Repair Perineum Skin, External Approach (ICD-10-PCS; 2022-02-12)
PROC: 30233S1 Transfusion of Nonautologous Globulin into Peripheral Vein, Percutaneous Approach (ICD-10-PCS; 2022-02-13)
DX: O36.5930 Maternal care for other known or suspected poor fetal growth, third trimester, not applicable or unspecified (principal); O60.14X0 Preterm labor third trimester with preterm delivery third trimester, not applicable or unspecified; Z37.0 Single live birth; Z3A.36 36 weeks gestation of pregnancy; Z20.822 Contact with and (suspected) exposure to COVID-19; O70.0 First degree perineal laceration during delivery; O99.02 Anemia complicating childbirth
CPT/HCPCS: 36415; 59025; 76816; 76817; 85027; 85461; 86592; 86706; 86762; 86850; 86870; 86900; 86901; 87806; G0378; J2790; U0003